=== PATIENT | female | born 1990 | race Caucasian/White ===

== ENCOUNTER → 2017-10-11 | Outpatient (CLI) | payer OTHER ==
[2017-10-11 11:29] LABS: HCT 31.6 % (34.0-46.0); HGB 10.3 gm/dL (11.4-16.0); MCH 30.1 pg (25.0-35.0); MCHC 32.6 g/dL (31.0-37.0); MCV 92.2 fL (80.0-100.0); Mean Platelet Volume 7.5; Platelet Count 313 k/uL (150-450); RBC 3.42 m/uL (3.80-5.40); RDW 11.7 % (11.5-15.5); WBC 8.3 k/uL (3.8-10.6)
== END ==
LOC: LABWHC1 10:13
PROVIDERS: ATTEND Obstetrics & Gynecology
DX: Z34.82 Encounter for supervision of other normal pregnancy, second trimester (principal)
CPT/HCPCS: 36415; 82565; 82950; 85027; 86762; 86780; 86850; 86900; 86901; 87340

== ENCOUNTER 2017-11-21 15:28 | Inpatient (IN) | payer OTHER ==
[2017-11-21] MEDS ORDERED: AMPICILLIN 2,000 MG in SODIUM CHLORIDE 0.9% 100 ML IVPB STA (17:03)
[2017-11-21] MEDS ORDERED: LIDOCAINE 1% (PF) 10 MG/ML (30 ML SDV) SQ PRN (17:03)
[2017-11-21] MEDS ORDERED: CARBOPROST TROMETHAMINE 250 MCG/ML 1 ML AMP IM PRN (17:03)
[2017-11-21] MEDS ORDERED: OXYTOCIN 10 UNIT/ML 1 ML VIAL IM PRN (17:03)
[2017-11-21] MEDS ORDERED: TERBUTALINE 1 MG/ML VIAL SQ PRN (17:03)
[2017-11-21] MEDS ORDERED: METHYLERGONOVINE 0.2 MG/ML 1 ML AMP IM PRN (17:03)
[2017-11-21 17:16] LABS: Basophils # (A) 0.1 k/uL (0-0.2); Basophils % (A) 0 %; Eosinophils # (A) 0.2 k/uL (0-0.7); Eosinophils % (A) 1 %; HCT 34.7 % (34.0-46.0); HGB 11.3 gm/dL (11.4-16.0); Lymphocytes # (A) 2.4 k/uL (1.0-4.8); Lymphocytes % (A) 22 %; MCH 29.8 pg (25.0-35.0); MCHC 32.6 g/dL (31.0-37.0); MCV 91.4 fL (80.0-100.0); Monocytes # (A) 0.6 k/uL (0-1.0); Monocytes % (A) 5 %; Neutrophils # (A) 7.8 k/uL (1.3-7.7); Neutrophils % (A) 70 %; Platelet Count 282 k/uL (150-450); RDW 13.1 % (11.5-15.5); WBC 11.1 k/uL (3.8-10.6)
[2017-11-21] MEDS: LACTATED RINGERS 1,000 ML IV SCH (17:26)
[2017-11-21 17:43] VITALS: BMI 26.6
[2017-11-21] MEDS ORDERED: AMPICILLIN 1,000 MG in SODIUM CHLORIDE 0.9% 50 ML IVPB SCH (21:00)
[2017-11-21] MEDS ORDERED: diphenhydrAMINE 50 MG/ML 1 ML VIAL IVP PRN ×2 (21:23)
[2017-11-21] MEDS ORDERED: WITCH HAZEL 1 EACH MED..PAD TOPICAL PRN (21:23)
[2017-11-21] MEDS ORDERED: LANOLIN CREAM 5 GM TUBE TOPICAL PRN (21:23)
[2017-11-21] MEDS ORDERED: diphenhydrAMINE 25 MG CAP PO PRN (21:23)
[2017-11-21] MEDS ORDERED: diphenhydrAMINE 50 MG CAP PO PRN (21:23)
[2017-11-21] MEDS ORDERED: BENZOCAINE/MENTHOL SPRAY 1 GM/SPRAY AEROSOL TOPICAL PRN (21:23)
[2017-11-21] MEDS ORDERED: SIMETHICONE 80 MG CHEWABLE PO PRN (21:23)
[2017-11-21] MEDS ORDERED: HYDROCORTISONE 2.5% RECTAL CREAM 30 GM TUBE RECTAL PRN (21:23)
[2017-11-21] MEDS ORDERED: ZOLPIDEM 5 MG TAB PO PRN (21:23)
--- NOTE | 2017-11-21 21:26 | P.HPOB ---
History of Present Illness H&P Date: 11/21/17 Chief Complaint: Intrauterine Brixey 35 weeks: Active labor Kristie is a 27-year-old at 35 weeks 5 days gestation who arrived to our office this morning complaining of contractions and pressure. She was checked in the office and noted to be 4 cm dilated and was sent to labor and delivery where over the next hour she went from 4-5 and over the next hour just 5-6-1/2. Her Precis course otherwise had been unremarkable other than somewhat late for care as her care started approximately 25 weeks. Over the last several weeks she has had good follow-up care and has been monitored very closely. Pertinent labs include O+ blood type Rh antibody was negative, rubella immune, hepatitis B surface antigen as well as RPR were both negative. Group B strep was unknown. heart tones in the 140s and have been reactive and she has been fernando more regularly every approximately 5 minutes. Assessment intrauterine at 35 weeks plan expect spontaneous vaginal delivery. Past Medical History Past Medical History: No Reported History Additional Past Medical History / Comment(s): Obstetric history: First was a vaginal delivery. Second she had an elective . This is her third and she has had care with Dr Thorpe since 10 weeks. She had chlamydia a few times in the and her latest test of cure was 2 days ago, so results are pending. O+, Rub nonimmune, Hep B neg, HIV NR, RPR NR. abnormal 1hr but normal 3hr GTT. History of Any Multi-Drug Resistant Organisms: None Reported Past Surgical History: No Surgical Hx Reported Additional Past Surgical History / Comment(s): D&C Past Anesthesia/Blood Transfusion Reactions: No Reported Reaction Past Psychological History: No Psychological Hx Reported Smoking Status: Current every day smoker Past Alcohol Use History: None Reported Past Drug Use History: None Reported - Past Family History Father Family Medical History: No Reported History Medications and Allergies Home Medications Medication Instructions Recorded Confirmed Type Pnv,Calcium 72/Iron/Folic Acid 1 tab PO DAILY 11/21/17 11/21/17 History [ Plus Tablet] Allergies Allergy/AdvReac Type Severity Reaction Status Date / Time No Known Allergies Allergy Verified 11/21/17 17:32 Exam Osteopathic Statement: *. No significant issues noted on an osteopathic structural exam other than those noted in the History and Physical/Consult. - Vital Signs Vital signs: Vital Signs Temp Pulse Resp BP 11/21/17 16:50 97.3 F L 77 16 124/56 11/21/17 15:28 97.0 F L 86 16 109/66 Intake and Output 11/21/17 11/21/17 11/21/17 06:59 14:59 22:59 Other: Weight 66.224 kg - OBG Physical Exam Breast: both: normal (no masses) Abdomen: bowel sounds normal, no diffuse tenderness, no bruit present, no guarding noted, no hepatomegaly, no splenomegaly, no mass Vulva: both: normal Vagina: normal moisture, no discharge Cervix: no lesion, no discharge Uterus: normal size, normal contour Adnexa: both: normal Anus/Rectum: normal perianal skin, no rectal mass, no hemorrhoids, heme negative Results Result Diagrams: 11/21/17 17:00 Abnormal Lab Results - Last 24 Hours (Table) 11/21/17 Range/Units 17:00 WBC 11.1 H (3.8-10.6) k/uL Hgb 11.3 L (11.4-16.0) gm/dL Neutrophils # 7.8 H (1.3-7.7) k/uL
[2017-11-21] MEDS ORDERED: OXYTOCIN 20 UNITS/1000 ML NS 1,000 ML IV SCH (22:00)
[2017-11-21] MEDS: ACETAMINOPHEN TAB 325 MG TAB PO PRN (22:03)
--- NOTE | 2017-11-21 23:24 | P.PROBDLV ---
Vaginal Delivery Note - . Vaginal Delivery Note: Patient progressed to complete and pushing with spontaneous vaginal delivery of a viable male over an intact perineum. Following delivery of the head anterior posterior shoulders were easily delivered with gentle downward upper traction. Mouth and nares were then bulb suctioned and baby was placed on mother's abdomen where the umbilical cord was allowed to pulsate for 45 seconds prior to clamping and cutting. Once this was completed nursery personnel was present to assume care. Placenta was then delivered intact Pitocin was added to the IV. scores are 9 and 9 at one and 5 minutes respectively and the weight was 6 lbs. 0 oz. Both mother and baby are stable following delivery.
[2017-11-22] MEDS: IBUPROFEN 600 MG TAB PO PRN ×2 (00:54→08:28)
[2017-11-22] MEDS: LACTATED RINGERS 1,000 ML IV SCH ×2 (01:28→19:21)
--- NOTE | 2017-11-22 08:55 | P.PNOBGVD ---
Subjective - Subjective Principal diagnosis: day 1 Interval history: Kristie is doing very well. No complaints. Patient reports: Reports appetite normal, Reports voiding normally, Reports pain well controlled, Reports ambulating normally : doing well Objective - Latest Vital Signs Latest vital signs: Vital Signs Temp Pulse Resp BP 11/22/17 04:00 98.7 F 68 16 111/67 11/22/17 00:00 72 16 110/65 11/21/17 23:35 76 16 123/68 11/21/17 23:00 68 16 117/65 11/21/17 22:30 65 16 124/69 11/21/17 22:15 68 16 121/70 11/21/17 22:00 69 16 118/66 11/21/17 21:43 85 16 127/60 11/21/17 21:30 97.5 F L 87 16 118/73 11/21/17 16:50 97.3 F L 77 16 124/56 11/21/17 15:28 97.0 F L 86 16 109/66 Intake and Output 11/21/17 11/22/17 11/22/17 22:59 06:59 14:59 Other: # Voids 1 1 Weight 66.224 kg - Exam Lungs: bilateral: normal Chest: Normal S1, Normal S2 Extremities: Present: normal Abdomen: Present: normal appearance, soft Uterus: Present: normal, firm - Labs Labs: Abnormal Lab Results - Last 24 Hours (Table) 11/21/17 Range/Units 17:00 WBC 11.1 H (3.8-10.6) k/uL Hgb 11.3 L (11.4-16.0) gm/dL Neutrophils # 7.8 H (1.3-7.7) k/uL
[2017-11-22] MEDS: SENNOSIDES-DOCUSATE SODIUM 1 EACH TAB PO SCH ×2 (09:31→21:35)
[2017-11-22] MEDS: ACETAMINOPHEN TAB 325 MG TAB PO PRN (18:23)
[2017-11-23 01:16] VITALS: RESP 16
[2017-11-23] MEDS: IBUPROFEN 600 MG TAB PO PRN (03:18)
[2017-11-23 08:31] VITALS: BP 116/74; PULSE 63; TEMP 98.8
[2017-11-23] MEDS: SENNOSIDES-DOCUSATE SODIUM 1 EACH TAB PO SCH (08:32)
--- NOTE | 2017-11-23 09:20 | P.DS ---
Providers Date of admission: 11/21/17 16:41 Expected date of discharge: 11/23/17 Attending physician: Jay Thorpe Primary care physician: Stated None Hospital Course: Patient is doing very well day 2. She is ambulating, voiding, and she is tolerating her diet. She voices no complaints. Vital signs are stable and afebrile. Heart regular, lungs clear, extremities without pain. Abdomen is soft uterus is firm below the umbilicus and lochia is reported to be light. Assessment day 2. Plan discharged home follow up with Dr. Thorpe in 6 weeks. She requests nothing for pain to go home with her. All other questions are answered and she is stable for discharge at this time. Patient Condition at Discharge: Good Plan - Discharge Summary Discharge Rx Participant: No New Discharge Prescriptions: No Action Pnv,Calcium 72/Iron/Folic Acid [ Plus Tablet] 1 tab PO DAILY Discharge Medication List Pnv,Calcium 72/Iron/Folic Acid [ Plus Tablet] 1 tab PO DAILY 11/21/17 [ History] Follow up Appointment(s)/Referral(s): Jay Thorpe MD [STAFF PHYSICIAN] - 6 Weeks Activity/Diet/Wound Care/Special Instructions: No heavy lifting, limit stairs and driving and pelvic rest. If any high temperatures, heavy bleeding, or severe pain call my office Discharge Disposition: HOME SELF-CARE
== END 2017-11-23 11:39 | disposition home or self-care (01) | DRG 775 ==
LOC: FBPOP 15:28 → 4FBP 16:41
PROVIDERS: ADMIT Obstetrics & Gynecology; ATTEND Obstetrics & Gynecology
PROC: 10907ZC Drainage of Amniotic Fluid, Therapeutic from Products of Conception, Via Natural or Artificial Opening (ICD-10-PCS; principal; 2017-11-21)
PROC: 10E0XZZ Delivery of Products of Conception, External Approach (ICD-10-PCS; principal; 2017-11-21)
DX: O99.334 Smoking (tobacco) complicating childbirth (principal); Z37.0 Single live birth; F17.200 Nicotine dependence, unspecified, uncomplicated; Z3A.35 35 weeks gestation of pregnancy
CPT/HCPCS: 59025; 85025; 88307

== ENCOUNTER 2019-08-15 11:35 | Emergency (ER) | payer BC, OTHER ==
[2019-08-15] MEDS ORDERED: SODIUM CHLORIDE 0.9% 1,000 ML IV STA (11:46)
--- NOTE | 2019-08-15 11:48 | ED ---
Seizure HPI - General Chief Complaint: Seizure Stated Complaint: SEIZURE Time Seen by Provider: 08/15/19 11:41 Source: patient, EMS, RN notes reviewed Mode of arrival: EMS Limitations: no limitations - History of Present Illness Initial Comments: This is a healthy 29-year-old female presents emergency Department with chief complaint of seizure. Patient reportedly was saying goodbye to hurts in the field other and she began to tense up and fell backwards striking her head. Patient has no history of seizures. Patient states she was started on Prozac 10 mg daily one week ago. She also takes Wellbutrin. Patient does have complaint of headache denies neck, back pain no extremity weakness. She hasn't complaints of chest pain, shortness breath, nausea vomiting. - Related Data Previous Rx's Medication Instructions Recorded Ibuprofen [Motrin] 400 mg PO Q6HR PRN #30 tab 07/21/19 Orphenadrine [Norflex] 100 mg PO Q12H #30 tablet.er 07/21/19 Allergies Allergy/AdvReac Type Severity Reaction Status Date / Time No Known Allergies Allergy Verified 07/20/19 21:22 Review of Systems ROS Statement: Those systems with pertinent positive or pertinent negative responses have been documented in the HPI. ROS Other: All systems not noted in ROS Statement are negative. Past Medical History Past Medical History: No Reported History Additional Past Medical History / Comment(s): Obstetric history: First was a vaginal delivery. Second she had an elective . This is her third and she has had care with Dr Thorpe since 10 weeks. She had chlamydia a few times in the and her latest test of cure was 2 days ago, so results are pending. O+, Rub nonimmune, Hep B neg, HIV NR, RPR NR. abnormal 1hr but normal 3hr GTT. History of Any Multi-Drug Resistant Organisms: None Reported Past Surgical History: No Surgical Hx Reported Additional Past Surgical History / Comment(s): D&C Past Anesthesia/Blood Transfusion Reactions: No Reported Reaction Past Psychological History: No Psychological Hx Reported Smoking Status: Current every day smoker Past Alcohol Use History: None Reported Past Drug Use History: Marijuana - Past Family History Father Family Medical History: No Reported History General Exam Limitations: no limitations General appearance: alert, in no apparent distress Head exam: Present: atraumatic, normocephalic, normal inspection Eye exam: Present: normal appearance, PERRL, EOMI. Absent: scleral icterus, conjunctival injection, periorbital swelling ENT exam: Present: normal exam, normal oropharynx, mucous membranes moist, TM's normal bilaterally Neck exam: Present: normal inspection, full ROM. Absent: tenderness, meningismus, lymphadenopathy Respiratory exam: Present: normal lung sounds bilaterally. Absent: respiratory distress, wheezes, rales, rhonchi, stridor Cardiovascular Exam: Present: regular rate, normal rhythm, normal heart sounds. Absent: systolic murmur, diastolic murmur, rubs, gallop, clicks GI/Abdominal exam: Present: soft, normal bowel sounds. Absent: distended, tenderness, guarding, rebound, rigid Neurological exam: Present: alert, oriented X3, CN II-XII intact, reflexes normal. Absent: motor sensory deficit Skin exam: Present: warm, dry, intact, normal color. Absent: rash Course Vital Signs 08/15/19 08/15/19 08/15/19 11:37 11:41 11:51 Temperature 97.7 F Pulse Rate 88 Respiratory 12 Rate Blood Pressure 116/74 O2 Sat by Pulse 100 Oximetry 08/15/19 12:57 Temperature Pulse Rate 83 Respiratory 16 Rate Blood Pressure 110/71 O2 Sat by Pulse 100 Oximetry Medical Decision Making - Medical Decision Making 29-year-old female presented for new-onset seizure. Patient has a negative workup including lab work, CT. Patient feels improved at this time. We discussed possibilities of syncopal episode versus glycemia versus seizure. Patient will follow-up with neurology for further evaluation. She was instructed she may not drive for 6 months and and until cleared by neurology. Return parameters discussed. - Lab Data Result diagrams: 08/15/19 12:21 08/15/19 12:21 Lab Results 08/15/19 08/15/19 Range/Units 12:21 12:21 WBC 6.9 (3.8-10.6) k/uL RBC 4.66 (3.80-5.40) m/uL Hgb 14.1 (11.4-16.0) gm/dL Hct 44.3 (34.0-46.0) % MCV 95.2 (80.0-100.0) fL MCH 30.2 (25.0-35.0) pg MCHC 31.8 (31.0-37.0) g/dL RDW 12.6 (11.5-15.5) % Plt Count 282 (150-450) k/uL Neutrophils % 65 % Lymphocytes % 24 % Monocytes % 6 % Eosinophils % 2 % Basophils % 1 % Neutrophils # 4.5 (1.3-7.7) k/uL Lymphocytes # 1.7 (1.0-4.8) k/uL Monocytes # 0.4 (0-1.0) k/uL Eosinophils # 0.2 (0-0.7) k/uL Basophils # 0.1 (0-0.2) k/uL Sodium 138 (137-145) mmol/L Potassium 4.3 (3.5-5.1) mmol/L Chloride 105 (98-107) mmol/L Carbon Dioxide 24 (22-30) mmol/L Anion Gap 9 mmol/L BUN 14 (7-17) mg/dL Creatinine 0.70 (0.52-1.04) mg/dL Est GFR (CKD-EPI)AfAm >90 (>60 ml/min/1.73 sqM) Est GFR (CKD-EPI)NonAf >90 (>60 ml/min/1.73 sqM) Glucose 77 (74-99) mg/dL Calcium 8.7 (8.4-10.2) mg/dL Total Bilirubin 0.3 (0.2-1.3) mg/dL AST 25 (14-36) U/L ALT 15 (4-34) U/L Alkaline Phosphatase 70 (38-126) U/L Total Protein 7.2 (6.3-8.2) g/dL Albumin 4.4 (3.5-5.0) g/dL Disposition Clinical Impression: New onset seizure Disposition: HOME SELF-CARE Condition: Stable Instructions (If sedation given, give patient instructions): New-Onset Seizure in Adults (ED) Additional Instructions: Please return to the Emergency Department if symptoms worsen or any other concerns. Is patient prescribed a controlled substance at d/c from ED?: No Referrals: Robinson Iverson MD [Primary Care Provider] - 1-2 days Jens Cardona DO [STAFF PHYSICIAN] - 1-2 days Poonam Aponte MD [STAFF PHYSICIAN] - 1-2 days Time of Disposition: 14:18
[2019-08-15 12:35] LABS: Basophils # (A) 0.1 k/uL (0-0.2); Basophils % (A) 1 %; Eosinophils # (A) 0.2 k/uL (0-0.7); Eosinophils % (A) 2 %; HCT 44.3 % (34.0-46.0); HGB 14.1 gm/dL (11.4-16.0); Lymphocytes # (A) 1.7 k/uL (1.0-4.8); Lymphocytes % (A) 24 %; MCH 30.2 pg (25.0-35.0); MCHC 31.8 g/dL (31.0-37.0); MCV 95.2 fL (80.0-100.0); Mean Platelet Volume 7.7; Monocytes # (A) 0.4 k/uL (0-1.0); Monocytes % (A) 6 %; Neutrophils # (A) 4.5 k/uL (1.3-7.7); Neutrophils % (A) 65 %; Platelet Count 282 k/uL (150-450); RBC 4.66 m/uL (3.80-5.40); RDW 12.6 % (11.5-15.5); WBC 6.9 k/uL (3.8-10.6)
[2019-08-15 12:47] LABS: ALT 15 U/L (4-34); AST 25 U/L (14-36); African American GFR (CKD) >90 (>60 ml/min/1.73 sqM); Albumin 4.4 g/dL (3.5-5.0); Alkaline Phosphatase 70 U/L (38-126); Anion Gap 9 mmol/L; Blood Urea Nitrogen 14 mg/dL (7-17); Calcium 8.7 mg/dL (8.4-10.2); Carbon Dioxide 24 mmol/L (22-30); Chloride 105 mmol/L (98-107); Glucose 77 mg/dL (74-99); Non-African American GFR(CKD) >90 (>60 ml/min/1.73 sqM); Potassium 4.3 mmol/L (3.5-5.1); Sodium 138 mmol/L (137-145); Total Bilirubin 0.3 mg/dL (0.2-1.3); Total Protein 7.2 g/dL (6.3-8.2)
--- NOTE | 2019-08-15 13:37 | CT ---
EXAMINATION TYPE: CT brain wo con DATE OF EXAM: 08/15/2019 COMPARISON: 07/20/2019 HISTORY: new onset seizure CT DLP: 1099.4 mGycm. Automated Exposure Control for Dose Reduction was Utilized. TECHNIQUE: CT scan of the head is performed without contrast. FINDINGS: There is no acute intracranial hemorrhage, mass effect, or midline shift identified. No suspicious extra axial fluid collection. The ventricles and sulci are within normal limits in size. The globes are intact and the visualized sinuses are clear. IMPRESSION: No acute intracranial hemorrhage, mass effect, or midline shift is seen.
[2019-08-15 14:45] VITALS: BP 104/70; PULSE 90; RESP 18; TEMP 98.1
== END 2019-08-15 14:45 | disposition home or self-care (01) ==
LOC: EC 11:35
DX: R56.9 Unspecified convulsions (principal); F17.200 Nicotine dependence, unspecified, uncomplicated; W18.30XA Fall on same level, unspecified, initial encounter
CPT/HCPCS: 36415; 70450; 80053; 85025; 96360; 96361; 99285

== ENCOUNTER 2019-11-15 19:19 | Emergency (ER) | payer BC, OTHER ==
[2019-11-15 19:25] VITALS: RESP 18
[2019-11-15] MEDS ORDERED: SODIUM CHLORIDE 0.9% 1,000 ML IV ONE (20:04)
[2019-11-15] MEDS ORDERED: KETOROLAC 30 MG/ML 1 ML VIAL IVP STA (20:04)
[2019-11-15 21:02] LABS: Basophils # (A) 0.1 k/uL (0-0.2); Basophils % (A) 1 %; Eosinophils # (A) 0.1 k/uL (0-0.7); Eosinophils % (A) 2 %; HCT 39.4 % (34.0-46.0); HGB 13.5 gm/dL (11.4-16.0); Lymphocytes # (A) 2.2 k/uL (1.0-4.8); Lymphocytes % (A) 33 %; MCH 31.7 pg (25.0-35.0); MCHC 34.2 g/dL (31.0-37.0); MCV 92.7 fL (80.0-100.0); Mean Platelet Volume 8.3; Monocytes # (A) 0.3 k/uL (0-1.0); Monocytes % (A) 4 %; Neutrophils # (A) 4.1 k/uL (1.3-7.7); Neutrophils % (A) 59 %; Platelet Count 272 k/uL (150-450); RBC 4.25 m/uL (3.80-5.40); RDW 12.1 % (11.5-15.5); WBC 6.9 k/uL (3.8-10.6)
--- NOTE | 2019-11-15 21:05 | ED ---
General Adult HPI - General Chief complaint: Vaginal Bleeding Stated complaint: Abd pain Time Seen by Provider: 11/15/19 19:28 Source: patient, family Mode of arrival: ambulatory Limitations: no limitations - History of Present Illness Initial comments: 29-year-old female patient presents to the emergency department today for evaluation of vaginal bleeding. Patient states that she has been having vaginal bleeding since September 11 when she took medication for an . Patient states that she did have a 2 to three-day period where the bleeding stopped within started again. Patient states at times the bleeding has been heavy with passage of large clots. States currently the bleeding is mild. States she changes her pad every 3-4 hours. She denies any weakness, dizziness, or passing out. She is G6, P3, with 3 elective abortions. She does not follow regularly with her pump operator. States she has not contacted the doctor who prescribed the medication for the . States she has not taken any tests since taking the medication. Denies any fever or chills. States she does have mild lower abdominal cramping. Denies back pain. Patient denies any recent rash, cough, shortness of breath, chest pain, nausea, vomiting, diarrhea, constipation, numbness, hematuria, dysuria, urinary urgency, urinary frequency, headache, visual changes, or any other complaints. - Related Data Previous Rx's Medication Instructions Recorded Ibuprofen [Motrin] 400 mg PO Q6HR PRN #30 tab 07/21/19 Orphenadrine [Norflex] 100 mg PO Q12H #30 tablet.er 07/21/19 Ibuprofen [Motrin] 600 mg PO Q8HR PRN #30 tab 11/15/19 Allergies Allergy/AdvReac Type Severity Reaction Status Date / Time No Known Allergies Allergy Verified 11/15/19 19:25 Review of Systems ROS Statement: Those systems with pertinent positive or pertinent negative responses have been documented in the HPI. ROS Other: All systems not noted in ROS Statement are negative. Past Medical History Past Medical History: No Reported History Additional Past Medical History / Comment(s): Obstetric history: First was a vaginal delivery. Second she had an elective . This is her third and she has had care with Dr Thorpe since 10 weeks. She had chlamydia a few times in the and her latest test of cure was 2 days ago, so results are pending. O+, Rub nonimmune, Hep B neg, HIV NR, RPR NR. abnormal 1hr but normal 3hr GTT. History of Any Multi-Drug Resistant Organisms: None Reported Past Surgical History: No Surgical Hx Reported Additional Past Surgical History / Comment(s): D&C Past Anesthesia/Blood Transfusion Reactions: No Reported Reaction Past Psychological History: No Psychological Hx Reported Smoking Status: Current every day smoker Past Alcohol Use History: None Reported Past Drug Use History: Marijuana - Past Family History Father Family Medical History: No Reported History General Exam Limitations: no limitations General appearance: alert, in no apparent distress, other (This is a well- developed, well-nourished adult female patient in no acute distress. Vital sig ns upon presentation are temperature 98.0F, pulse 107, respirations 18, blood pressure 129/88, pulse ox 100% on room air.) Eye exam: Present: normal appearance, PERRL, EOMI. Absent: scleral icterus, conjunctival injection, periorbital swelling ENT exam: Present: normal exam, normal oropharynx, mucous membranes moist Respiratory exam: Present: normal lung sounds bilaterally. Absent: respiratory distress, wheezes, rales, rhonchi, stridor Cardiovascular Exam: Present: regular rate, normal rhythm, normal heart sounds. Absent: systolic murmur, diastolic murmur, rubs, gallop, clicks GI/Abdominal exam: Present: soft, tenderness (Mild suprapubic tenderness), normal bowel sounds. Absent: distended, guarding, rebound, rigid Neurological exam: Present: alert, oriented X3, CN II-XII intact Psychiatric exam: Present: normal affect, normal mood Skin exam: Present: warm, dry, intact, normal color. Absent: rash Course Vital Signs 11/15/19 11/15/19 19:24 23:04 Temperature 98 F 97.5 F L Pulse Rate 107 H 52 L Respiratory 18 18 Rate Blood Pressure 129/88 101/59 O2 Sat by Pulse 100 99 Oximetry Medical Decision Making - Medical Decision Making 29-year-old female patient presents to the emergency department today for evaluation of vaginal bleeding 2 months. Patient had taken pills to induce on September 11 and is had bleeding since. Patient presented today for increased pain. Reports mild to moderate bleeding changing her pad every 3-4 hours. Physical examination did reveal some mild suprapubic tenderness. Vaginal exam was performed and did show a small amount of dark red blood in the vaginal vault, cervix closed. She had mild left adnexal tenderness. Labs reviewed and revealed normal hemoglobin. HCG is undetectable. Urinalysis shows no evidence for infection. Ultrasound was obtained and showed a slightly heterogenous endometrium with increased vascularity suspicious for retained products of conception. Did discuss the case with on-call TACTICAL INTELLIGENCE OFFICER Dr. Mccormack who recommends follow up outpatient for possible D&C. Patient has seen Dr. Thorpe in the past and wants to call him. She'll be discharged to follow-up as soon as possible. Return parameters were discussed in detail. She verbalizes understanding and agrees with this plan. - Lab Data Result diagrams: 11/15/19 20:40 11/15/19 20:40 Lab Results 11/15/19 11/15/19 11/15/19 Range/Units 20:40 20:40 20:40 WBC 6.9 (3.8-10.6) k/uL RBC 4.25 (3.80-5.40) m/uL Hgb 13.5 (11.4-16.0) gm/dL Hct 39.4 (34.0-46.0) % MCV 92.7 (80.0-100.0) fL MCH 31.7 (25.0-35.0) pg MCHC 34.2 (31.0-37.0) g/dL RDW 12.1 (11.5-15.5) % Plt Count 272 (150-450) k/uL Neutrophils % 59 % Lymphocytes % 33 % Monocytes % 4 % Eosinophils % 2 % Basophils % 1 % Neutrophils # 4.1 (1.3-7.7) k/uL Lymphocytes # 2.2 (1.0-4.8) k/uL Monocytes # 0.3 (0-1.0) k/uL Eosinophils # 0.1 (0-0.7) k/uL Basophils # 0.1 (0-0.2) k/uL PT (9.0-12.0) sec INR (<1.2) APTT (22.0-30.0) sec Sodium 138 (137-145) mmol/L Potassium 4.2 (3.5-5.1) mmol/L Chloride 107 (98-107) mmol/L Carbon Dioxide 23 (22-30) mmol/L Anion Gap 8 mmol/L BUN 10 (7-17) mg/dL Creatinine 0.65 (0.52-1.04) mg/dL Est GFR (CKD-EPI)AfAm >90 (>60 ml/min/1.73 sqM) Est GFR (CKD-EPI)NonAf >90 (>60 ml/min/1.73 sqM) Glucose 111 H (74-99) mg/dL Calcium 9.7 (8.4-10.2) mg/dL Total Bilirubin 0.5 (0.2-1.3) mg/dL AST 22 (14-36) U/L ALT 13 (4-34) U/L Alkaline Phosphatase 50 (38-126) U/L Total Protein 7.2 (6.3-8.2) g/dL Albumin 4.5 (3.5-5.0) g/dL HCG, Quant <2.4 mIU/mL Urine Color Urine Appearance (Clear) Urine pH (5.0-8.0) Ur Specific [place] (1.001-1.035) Urine Protein (Negative) Urine Glucose (UA) (Negative) Urine Ketones (Negative) Urine Blood (Negative) Urine Nitrite (Negative) Urine Bilirubin (Negative) Urine Urobilinogen (<2.0) mg/dL Ur Leukocyte Esterase (Negative) Urine RBC (0-5) /hpf Urine WBC (0-5) /hpf Ur Squamous Epith Cells (0-4) /hpf Urine Mucus (None) /hpf Blood Type O Positive Blood Type Recheck O Pos Bld Type Recheck Status No Antibody Screen NEGATIVE Spec Expiration Date 11/18/2019233911/15/19 11/15/19 Range/Units 20:42 21:17 WBC (3.8-10.6) k/uL RBC (3.80-5.40) m/uL Hgb (11.4-16.0) gm/dL Hct (34.0-46.0) % MCV (80.0-100.0) fL MCH (25.0-35.0) pg MCHC (31.0-37.0) g/dL RDW (11.5-15.5) % Plt Count (150-450) k/uL Neutrophils % % Lymphocytes % % Monocytes % % Eosinophils % % Basophils % % Neutrophils # (1.3-7.7) k/uL Lymphocytes # (1.0-4.8) k/uL Monocytes # (0-1.0) k/uL Eosinophils # (0-0.7) k/uL Basophils # (0-0.2) k/uL PT 11.3 (9.0-12.0) sec INR 1.1 (<1.2) APTT 24.9 (22.0-30.0) sec Sodium (137-145) mmol/L Potassium (3.5-5.1) mmol/L Chloride (98-107) mmol/L Carbon Dioxide (22-30) mmol/L Anion Gap mmol/L BUN (7-17) mg/dL Creatinine (0.52-1.04) mg/dL Est GFR (CKD-EPI)AfAm (>60 ml/min/1.73 sqM) Est GFR (CKD-EPI)NonAf (>60 ml/min/1.73 sqM) Glucose (74-99) mg/dL Calcium (8.4-10.2) mg/dL Total Bilirubin (0.2-1.3) mg/dL AST (14-36) U/L ALT (4-34) U/L Alkaline Phosphatase (38-126) U/L Total Protein (6.3-8.2) g/dL Albumin (3.5-5.0) g/dL HCG, Quant mIU/mL Urine Color Yellow Urine Appearance Cloudy H (Clear) Urine pH 6.0 (5.0-8.0) Ur Specific [place] 1.016 (1.001-1.035) Urine Protein Trace H (Negative) Urine Glucose (UA) Negative (Negative) Urine Ketones Negative (Negative) Urine Blood Small H (Negative) Urine Nitrite Negative (Negative) Urine Bilirubin Negative (Negative) Urine Urobilinogen <2.0 (<2.0) mg/dL Ur Leukocyte Esterase Negative (Negative) Urine RBC 1 (0-5) /hpf Urine WBC 2 (0-5) /hpf Ur Squamous Epith Cells 4 (0-4) /hpf Urine Mucus Many H (None) /hpf Blood Type Blood Type Recheck Bld Type Recheck Status Antibody Screen Spec Expiration Date - Radiology Data Radiology results: report reviewed, image reviewed Transvaginal ultrasound was obtained. Report was reviewed in its entirety. Impression by Dr. Chinchilla shows heterogenous endometrial canal slightly thickened which may be some retained products. Disposition Clinical Impression: Retained products of conception, Dysfunctional uterine bleeding Disposition: HOME SELF-CARE Condition: Good Instructions (If sedation given, give patient instructions): Dysfunctional Uterine Bleeding (ED) Additional Instructions: Increase fluids. Rest. Follow-up with your pump operator for further evaluation as soon as possible. Return to the emergency department immediately for any new, worsening, or concerning symptoms. Prescriptions: Ibuprofen [Motrin] 600 mg PO Q8HR PRN #30 tab PRN Reason: Pain Is patient prescribed a controlled substance at d/c from ED?: No Referrals: Jay Thorpe MD [STAFF PHYSICIAN] - 1-2 days Time of Disposition: 23:14
[2019-11-15 21:09] LABS: Appearance,Urine Cloudy (Clear); Bilirubin,Urine Negative (Negative); Blood,Urine Small (Negative); Color,Urine Yellow; Glucose,Urine (UA) Negative (Negative); Ketones,Urine Negative (Negative); Leukocyte Esterase,Urine Negative (Negative); Mucus,Urine Many /hpf; Nitrite,Urine Negative (Negative); Protein,Urine Trace (Negative); RBC,Urine 1 /hpf (0-5); Specific Gravity,Urine 1.016 (1.001-1.035); Squamous Epithelial Cell,Urine 4 /hpf (0-4); Urobilinogen,Urine <2.0 mg/dL (<2.0); WBC,Urine 2 /hpf (0-5)
[2019-11-15 21:28] LABS: ALT 13 U/L (4-34); AST 22 U/L (14-36); African American GFR (CKD) >90 (>60 ml/min/1.73 sqM); Albumin 4.5 g/dL (3.5-5.0); Alkaline Phosphatase 50 U/L (38-126); Anion Gap 8 mmol/L; Blood Urea Nitrogen 10 mg/dL (7-17); Calcium 9.7 mg/dL (8.4-10.2); Carbon Dioxide 23 mmol/L (22-30); Chloride 107 mmol/L (98-107); Glucose 111 mg/dL (74-99); Non-African American GFR(CKD) >90 (>60 ml/min/1.73 sqM); Potassium 4.2 mmol/L (3.5-5.1); Sodium 138 mmol/L (137-145); Total Bilirubin 0.5 mg/dL (0.2-1.3); Total Protein 7.2 g/dL (6.3-8.2)
[2019-11-15 21:38] LABS: INR 1.1 (<1.2); Partial Thromboplastin Time 24.9 sec (22.0-30.0); Prothrombin Time 11.3 sec (9.0-12.0)
[2019-11-15 21:44] LABS: HCG,Quantitative Serum <2.4 mIU/mL
--- NOTE | 2019-11-15 21:59 | US ---
EXAMINATION TYPE: US transvaginal DATE OF EXAM: 11/15/2019 COMPARISON: NONE CLINICAL HISTORY: Patient had on September 11 and has had pain and bleeding since. TECHNIQUE: Transvaginal (TV). EXAM MEASUREMENTS: Uterus: 7.6 x 4.3 x 5.7 cm Endometrial Stripe: 0.6 cm Right Ovary: 2.4 x 1.3 x 1.5 cm Left Ovary: 3.2 x 2.3 x 2.4 cm 1. Uterus: Retroverted wnl 2. Endometrium: heterogeneous and complex with increased vascularity 3. Right Ovary: wnl 4. Left Ovary: wnl Spectral, color and waveform doppler imaging shows good arterial and venous flow within the ovaries ; there is no evidence for ovarian torsion. 5. Bilateral Adnexa: wnl 6. Posterior cul-de-sac: wnl Endometrium which is complex heterogeneous and shows increased vascularity, suspicious for retained p roducts. IMPRESSION: 1. Heterogenous endometrial canal slightly thickened which may be some retained products.
[2019-11-15 23:09] VITALS: BP 101/59; PULSE 52; TEMP 97.5
[2019-11-15] MEDS ORDERED: ACET/COD 300 MG/30 MG STARTER PACK 6 TAB BTL PO STA (23:28)
== END 2019-11-15 23:38 | disposition home or self-care (01) ==
LOC: EC 19:19
DX: O07.1 Delayed or excessive hemorrhage following failed attempted termination of pregnancy (principal); F17.200 Nicotine dependence, unspecified, uncomplicated
CPT/HCPCS: 36415; 86900; 86901; 80053; 85025; 85610; 85730; 86850; 81001; 84702; 93975; 76830; 99284; 96374; 96361 ×2; J1885

== ENCOUNTER 2020-04-17 16:42 | Emergency (ER) | payer BC, OTHER ==
[2020-04-17 16:58] VITALS: BP 114/69; PULSE 72; RESP 20; TEMP 98.1
--- NOTE | 2020-04-17 18:12 | ED ---
General Adult HPI - General Chief complaint: Abdominal Pain Stated complaint: Stomachache/Note for work Time Seen by Provider: 04/17/20 17:39 Source: patient, RN notes reviewed, old records reviewed Mode of arrival: ambulatory Limitations: no limitations - History of Present Illness Initial comments: 30-year-old female patient presents to ED. Patient was that she is coming to the emergency department because she needs a work note. Patient reports that earlier today he had some abdominal discomfort. She reports that she felt nauseous and one episode of vomiting. She thinks that she ate something bad yesterday. Currently she is totally asymptomatic denies any symptoms. She is coming because she is requesting a work note. Denies any other acute complaints. Denies any chance of . Systemic: Pt denies fatigue, fever/chills, rash. Pt denies weakness, night sweats, weight loss. Neuro: Pt denies headache, visual disturbances, syncope or pre-syncope. HEENT: Pt denies ocular discharge or irritation, otalgia, rhinorrhea, pharyngitis or notable lymphadenopathy. Cardiopulmonary: Pt denies chest pain, SOB, heart palpitations, dyspnea on exertion. Abdominal/GI: Pt denies abdominal pain, n/v/d. : Pt denies dysuria, burning w/ urination, frequency/urgency. Denies new onset urinary or bowel incontinence. MSK: Pt denies myalgia, loss of strength or function in extremities. Neuro: Pt denies new onset weakness, paresthesias. - Related Data Previous Rx's Medication Instructions Recorded Ibuprofen [Motrin] 400 mg PO Q6HR PRN #30 tab 07/21/19 Orphenadrine [Norflex] 100 mg PO Q12H #30 tablet.er 07/21/19 Ibuprofen [Motrin] 600 mg PO Q8HR PRN #30 tab 11/15/19 Allergies Allergy/AdvReac Type Severity Reaction Status Date / Time No Known Allergies Allergy Verified 04/17/20 16:58 Review of Systems ROS Statement: Those systems with pertinent positive or pertinent negative responses have been documented in the HPI. ROS Other: All systems not noted in ROS Statement are negative. Past Medical History Past Medical History: No Reported History Additional Past Medical History / Comment(s): Obstetric history: First was a vaginal delivery. Second she had an elective . This is her third and she has had care with Dr Thorpe since 10 weeks. She had chlamydia a few times in the and her latest test of cure was 2 days ago, so results are pending. O+, Rub nonimmune, Hep B neg, HIV NR, RPR NR. abnormal 1hr but normal 3hr GTT. History of Any Multi-Drug Resistant Organisms: None Reported Past Surgical History: No Surgical Hx Reported Additional Past Surgical History / Comment(s): D&C Past Anesthesia/Blood Transfusion Reactions: No Reported Reaction Past Psychological History: No Psychological Hx Reported Smoking Status: Never smoker Past Alcohol Use History: None Reported Past Drug Use History: Marijuana - Past Family History Father Family Medical History: No Reported History General Exam - General Exam Comments Initial Comments: Constitutional: NAD, AOX3, Pt has pleasant affect. HEENT: NC/AT, trachea midline, neck supple, no lymphadenopathy. External ears appear normal, without discharge. Mucous membranes moist. Eyes PERRLA, EOM intact. There is no scleral icterus. No pallor noted. Cardiopulmonary: RRR, no murmurs, rubs or gallops, no JVD noted. Lungs CTAB in anterior and posterior gaytan. No peripheral edema. Abdominal exam: Abdomen soft and non-distended. Abdomen non-tender to palpation in all 4 quadrants. Bowel sounds active in LLQ. No hepatosplenomegaly. No ecchymosis Neuro: CN II-XII grossly intact. No nuchal rigidity. No raccon eyes, no camacho sign, no hemotympanum. No cervical spinal tenderness. MSK: Full active ROM in upper and lower extremities, 5/5 stregnth. Limitations: no limitations Course Vital Signs 04/17/20 16:54 Temperature 98.1 F Pulse Rate 72 Respiratory 20 Rate Blood Pressure 114/69 O2 Sat by Pulse 99 Oximetry Medical Decision Making - Medical Decision Making 30-year-old female patient for ED requesting work note after she had a: Work today after she had some abdominal discomfort and episode of nausea and vomiting which has since subsided. Patient has no abdominal tenderness on exam. Patient is declining any acute complaints. Declines lead work or imaging. Will be provided work notable follow-up with primary care provider and will return to ER with any worsening symptoms. Case discussed with Dr. Torres. Disposition Clinical Impression: Nausea and vomiting Disposition: HOME SELF-CARE Condition: Stable Instructions (If sedation given, give patient instructions): Acute Nausea and Vomiting (ED) Additional Instructions: Follow up with PCP tomorrow. Return to ED with any worsening symptoms. Is patient prescribed a controlled substance at d/c from ED?: No Referrals: Nonstaff,Physician [Primary Care Provider] - 1-2 days
== END 2020-04-17 18:37 | disposition home or self-care (01) ==
LOC: EC 16:42
DX: Z02.1 Encounter for pre-employment examination (principal)
CPT/HCPCS: 99284

== ENCOUNTER 2020-08-31 18:48 | Emergency (ER) | payer BC, OTHER ==
[2020-08-31 19:07] VITALS: BP 112/74; PULSE 80; RESP 20; TEMP 97.8
--- NOTE | 2020-08-31 19:39 | ED ---
Headache HPI - General Chief Complaint: Headache Stated Complaint: headache, nausea Time Seen by Provider: 08/31/20 19:18 Mode of arrival: ambulatory Limitations: no limitations - History of Present Illness Initial Comments: 30-year-old female presenting for headache nausea. Patient states that she frequently gets migraines that cause nausea. She states these are chronic. [place] crandall states she missed work today secondary to headache. Patient states she's not feels is unusual in any way. She denies any fevers neck stiffness she denies any strokelike symptoms such as sensation deficits or weakness she denies any speech changes vision loss or diplopia she denies any difficulty in finding or dizziness. Patient denies this being the worse headache of her life or sudden onset. Patient denies cough congestion or upper respiratory symptoms. Patient states she simply needs a work note. In triage discussed patient needing comatose she states she does not need a comatose only a work note. Patient denies shortness of breath, body aches or chest pain. Patient appears well nontoxic in no acute distress on arrival. - Related Data Previous Rx's Medication Instructions Recorded Ibuprofen [Motrin] 400 mg PO Q6HR PRN #30 tab 07/21/19 Orphenadrine [Norflex] 100 mg PO Q12H #30 tablet.er 07/21/19 Ibuprofen [Motrin] 600 mg PO Q8HR PRN #30 tab 11/15/19 Allergies Allergy/AdvReac Type Severity Reaction Status Date / Time No Known Allergies Allergy Verified 08/31/20 19:07 Review of Systems ROS Statement: Those systems with pertinent positive or pertinent negative responses have been documented in the HPI. ROS Other: All systems not noted in ROS Statement are negative. Past Medical History Past Medical History: No Reported History Additional Past Medical History / Comment(s): Obstetric history: First was a vaginal delivery. Second she had an elective . This is her third and she has had care with Dr Thorpe since 10 weeks. She had chlamydia a few times in the and her latest test of cure was 2 days ago, so results are pending. O+, Rub nonimmune, Hep B neg, HIV NR, RPR NR. abnormal 1hr but normal 3hr GTT. History of Any Multi-Drug Resistant Organisms: None Reported Past Surgical History: No Surgical Hx Reported Additional Past Surgical History / Comment(s): D&C Past Anesthesia/Blood Transfusion Reactions: No Reported Reaction Past Psychological History: No Psychological Hx Reported Smoking Status: Current every day smoker Past Alcohol Use History: None Reported Past Drug Use History: Marijuana - Past Family History Father Family Medical History: No Reported History General Exam - General Exam Comments Initial Comments: General: The patient is awake and alert, in no distress Eye: +3 mm pupils are equal, round and reactive to light, extra-ocular movements are intact. No nystagmus. There is normal conjunctiva bilaterally. No signs of icterus. Ears, nose, mouth and throat: There are moist mucous membranes and no oral lesions. Neck: The neck is supple, there is no tenderness or JVD. No nuchal rigidity Cardiovascular: There is a regular rate and rhythm. No murmur, rub or gallop is appreciated. Respiratory: Lungs are clear to auscultation, respirations are non-labored, breath sounds are equal. No wheezes, stridor, rales, or rhonchi. Gastrointestinal: Soft, non-distended, non-tender abdomen without masses or organomegaly noted. There is no rebound or guarding present. Musculoskeletal: Normal ROM, no tenderness. Strength 5/5 of the upper and lower extremities equal and comparison bilaterally. Sensation intact of the upper and lower extremities equal comparison bilaterally. Radial and DP pulses equal bilaterally 2+. Neurological: A&O x 3. CN II-XII intact There are no obvious motor or sensory deficits. Coordination appears grossly intact. Speech is normal. Skin: Skin is warm and dry and no rashes or lesions are noted. Psychiatric: Cooperative, appropriate mood & affect, normal judgment. Limitations: no limitations Course Vital Signs 08/31/20 08/31/20 19:05 19:47 Temperature 97.8 F 97.8 F Pulse Rate 80 80 Respiratory 20 20 Rate Blood Pressure 112/74 112/74 O2 Sat by Pulse 99 99 Oximetry Medical Decision Making - Medical Decision Making Pt requesting work note for [employer] today. Hx of chronic migraines, denies fevers/URI symptoms. Denies concerning alarming features of headache. Patient is no focal neurological deficits. Patient discharged appearing well. Pt refused covid/test/treatment Dr. romero attending. Disposition Clinical Impression: Migraine, Nausea Disposition: HOME SELF-CARE Condition: Good Instructions (If sedation given, give patient instructions): Acute Headache (ED) Additional Instructions: Please use medication as discussed. Please follow-up with family doctor in the next 2 days. Please return to emergency room if the symptoms increase or worsen or for any other concerns. Is patient prescribed a controlled substance at d/c from ED?: No Referrals: None,Stated [Primary Care Provider] - 1-2 days Time of Disposition: 19:39
== END 2020-08-31 19:48 | disposition home or self-care (01) ==
LOC: EC 18:48
DX: G43.909 Migraine, unspecified, not intractable, without status migrainosus (principal); F17.200 Nicotine dependence, unspecified, uncomplicated
CPT/HCPCS: 99283

== ENCOUNTER 2020-09-16 18:15 | Emergency (ER) | payer BC, OTHER ==
[2020-09-16 19:53] VITALS: BP 116/78; PULSE 69; RESP 17; TEMP 98
--- NOTE | 2020-09-16 21:05 | ED ---
Headache HPI - General Chief Complaint: Headache Stated Complaint: headache/nausea Time Seen by Provider: 09/16/20 20:28 Mode of arrival: ambulatory Limitations: no limitations - History of Present Illness Initial Comments: 30-year-old female patient presents to the emergency department today requesting work no. Patient states she had migraine headache that has nausea and vomiting. States she has have a history of migraines with similar symptoms. States she was unable to go to work and her employer was requiring a note to return. Patient states that her headache is improved after taking Excedrin at home. States she has been able to eat and drink. Denies any new symptoms with this headache. Denies any head injury. Denies wanting any treatments or testing, states she only needs a note. - Related Data Previous Rx's Medication Instructions Recorded Ibuprofen [Motrin] 400 mg PO Q6HR PRN #30 tab 07/21/19 Orphenadrine [Norflex] 100 mg PO Q12H #30 tablet.er 07/21/19 Ibuprofen [Motrin] 600 mg PO Q8HR PRN #30 tab 11/15/19 Allergies Allergy/AdvReac Type Severity Reaction Status Date / Time No Known Allergies Allergy Verified 09/16/20 19:53 Review of Systems ROS Statement: Those systems with pertinent positive or pertinent negative responses have been documented in the HPI. ROS Other: All systems not noted in ROS Statement are negative. Past Medical History Past Medical History: No Reported History Additional Past Medical History / Comment(s): Obstetric history: First was a vaginal delivery. Second she had an elective . This is her third and she has had care with Dr Thorpe since 10 weeks. She had chlamydia a few times in the and her latest test of cure was 2 days ago, so results are pending. O+, Rub nonimmune, Hep B neg, HIV NR, RPR NR. abnormal 1hr but normal 3hr GTT. History of Any Multi-Drug Resistant Organisms: None Reported Past Surgical History: No Surgical Hx Reported Additional Past Surgical History / Comment(s): D&C Past Anesthesia/Blood Transfusion Reactions: No Reported Reaction Past Psychological History: No Psychological Hx Reported Smoking Status: Current every day smoker Past Alcohol Use History: None Reported Past Drug Use History: Marijuana - Past Family History Father Family Medical History: No Reported History General Exam Limitations: no limitations General appearance: alert, in no apparent distress Eye exam: Present: normal appearance, PERRL, EOMI. Absent: scleral icterus, conjunctival injection, nystagmus, periorbital swelling ENT exam: Present: normal exam, normal oropharynx, mucous membranes moist Respiratory exam: Present: normal lung sounds bilaterally. Absent: respiratory distress, wheezes, rales, rhonchi, stridor Cardiovascular Exam: Present: regular rate, normal rhythm, normal heart sounds. Absent: systolic murmur, diastolic murmur, rubs, gallop, clicks GI/Abdominal exam: Present: soft, normal bowel sounds. Absent: distended, tenderness, guarding, rebound, rigid Neurological exam: Present: alert, oriented X3, CN II-XII intact Expanded Speech: Present: fluid speech Cranial nerves: EOM's Intact: Normal, Nystagmus: Normal Motor strength exam: RUE: 5, LUE: 5, RLE: 5, LLE: 5 Psychiatric exam: Present: normal affect, normal mood Skin exam: Present: warm, dry, intact, normal color. Absent: rash Course Vital Signs 09/16/20 19:47 Temperature 98.0 F Pulse Rate 69 Respiratory 17 Rate Blood Pressure 116/78 O2 Sat by Pulse 100 Oximetry Medical Decision Making - Medical Decision Making 30-year-old female patient presents to the emergency department today requesting work note. He had a migraine headache was unable to go to work. Physical examination is unremarkable. He is neurologically intact no focal deficits. No new symptoms with this migraine. She declined testing or treatment. Return parameters were discussed in detail. She verbalizes understanding and agrees with this plan. My attending is Dr. Lackey. Disposition Clinical Impression: Migraine Disposition: HOME SELF-CARE Condition: Good Instructions (If sedation given, give patient instructions): Migraine Headache (ED) Additional Instructions: Increase fluids. Rest. Follow-up through primary care physician for recheck as soon as possible. Return to the emergency department for any new, worsening, or concerning symptoms. Is patient prescribed a controlled substance at d/c from ED?: No Referrals: None,Stated [Primary Care Provider] - 1-2 days Time of Disposition: 21:04
== END 2020-09-16 21:35 | disposition home or self-care (01) ==
LOC: EC 18:15
DX: G43.909 Migraine, unspecified, not intractable, without status migrainosus (principal); F17.200 Nicotine dependence, unspecified, uncomplicated
CPT/HCPCS: 99283